=== PATIENT | female | born 1970 ===

== ENCOUNTER 2022-05-24 05:50 | Day surgery (SDC) | payer OTHER ==
[~2022-05-24] VITALS: Ht 162.6 cm; Wt 71.7 kg
[2022-05-24] MEDS ORDERED: NAPR500T14 PO (08:11)
[2022-05-24] MEDS ORDERED: MORGIDOX100 MG PO (08:11)
== END 2022-05-24 11:20 | disposition home or self-care (01) ==
LOC: CIR.AMB 05:50
PROVIDERS: ATTEND Obstetrics & Gynecology
DX: D25.0 Submucous leiomyoma of uterus (principal); Z20.822 Contact with and (suspected) exposure to COVID-19; Z86.16 Personal history of COVID-19